=== PATIENT | female | born 1980 | race Caucasian/White ===

== ENCOUNTER 2017-10-30 20:10 | Emergency (ER) | payer MEDICAID ==
[2017-10-30] MEDS: ACETAMINOPHEN 500 MG TAB PO (20:38)
[2017-10-30] MEDS: LEVALBUTEROL (NEB) 0.63 MG/3 ML AMP HHN (20:42)
== END 2017-10-30 21:44 | disposition home or self-care (01) ==
LOC: FTE 20:10
DX: O99.89 Other specified diseases and conditions complicating pregnancy, childbirth and the puerperium (principal); R05 Cough; A49.9 Bacterial infection, unspecified; Z3A.09 9 weeks gestation of pregnancy
CPT/HCPCS: 94664; 99284-25

== ENCOUNTER 2017-12-03 17:15 | Emergency (ER) | payer MEDICAID ==
[2017-12-03 17:46] LABS: URINE PH (Dip) POC 6.5 (5.0-8.5)
[2017-12-03 17:46] LABS: URINE BLOOD (Dip) POC 1+ (NEGATIVE); URINE GLUCOSE (Dip) POC Negative (NEGATIVE); URINE KETONES (Dip) POC Negative (NEGATIVE); URINE LEUKOCYTE EST (Dip) POC 1+ (NEGATIVE); URINE NITRITE (Dip) POC Negative (NEGATIVE); URINE TOTAL PROTEIN POC Negative (NEGATIVE)
== END 2017-12-03 20:42 | disposition home or self-care (01) ==
LOC: FTE 17:15
DX: O23.592 Infection of other part of genital tract in pregnancy, second trimester (principal); N89.8 Other specified noninflammatory disorders of vagina; Z3A.14 14 weeks gestation of pregnancy
CPT/HCPCS: 76801; 81003; 99284-25